=== PATIENT | male | born 1955 | race Caucasian/White ===

== ENCOUNTER 2018-12-19 22:14 | Emergency (ER) | payer BC ==
[~2018-12-19] VITALS: Ht 182.9 cm; Wt 85.0 kg
[2018-12-19 22:16] VITALS: BP 165/84
[2018-12-19] MEDS ORDERED: NEOSPORIN OINT. PKT 1 PACKET ONE (22:24)
== END 2018-12-19 22:52 | disposition home or self-care (01) ==
LOC: ED 22:30
DX: S61.511A Laceration without foreign body of right wrist, initial encounter (principal); X58.XXXA Exposure to other specified factors, initial encounter; Y93.89 Activity, other specified; Y92.89 Other specified places as the place of occurrence of the external cause; Y99.8 Other external cause status
CPT/HCPCS: 99283